=== PATIENT | male | born 1975 | race Caucasian/White ===

== ENCOUNTER 2021-06-12 14:00 | Emergency (ER) | payer MEDICAID ==
[~2021-06-12] VITALS: Ht 180.3 cm; Wt 122.0 kg
[2021-06-12 14:20] VITALS: BP 149/97
== END 2021-06-12 14:30 | disposition home or self-care (01) ==
LOC: ER 14:01
DX: F10.10 Alcohol abuse, uncomplicated (principal); F17.200 Nicotine dependence, unspecified, uncomplicated; Z72.89 Other problems related to lifestyle; Y90.9 Presence of alcohol in blood, level not specified
CPT/HCPCS: 99281